=== PATIENT | female | born 1935 | race American Indian/Alaskan Native ===

== ENCOUNTER 2019-04-10 09:18 | Outpatient (CLI) | payer MEDICARE ==
--- NOTE | 2019-04-15 15:29 | PET Report ---
PET whole body initial INDICATION: Malignant neoplasm left lower limb. Tracer: F-18 FDG 12.5 mCi IV injection at 9:58 AM on 04/10/2019. TECHNIQUE: All CT scans at this location are performed using the following dose modulation technique: Automated exposure control. Following injection of the above tracer and appropriate delay, PET imaging was perf ormed from the skull base to the upper thighs. CT imaging was performed at the same time for the purp oses of anatomic localization. COMPARISON: None available. FINDINGS: Head/neck: Negative for abnormal uptake. CHEST: Negative for abnormal uptake. Abdomen/pelvis: Extensive adenopathy extends along the retroperitoneum throughout the abdomen and pel vis. A telephone services sales representative abdominal node located anterior to the aorta at the level of the kidneys measur es 2.1 cm in its greatest short axis diameter and has maximal SUV of 13.2 a telephone services sales representative pelvic nod es at the left common iliac chain measures 2.9 cm and has maximal SUV of 17. A large, partially calcified fibroid uterus demonstrates some internal activity likely representing d egeneration. Lower extremities: Large groin nodes are seen bilaterally. A telephone services sales representative node at the right groin m easures 3.9 cm and has maximal SUV of 17.[address] findings: Cirrhosis with portal hypertension including ascites, splenomegaly and varices. A combin ation of simple and complex renal lesions and a low-density splenic lesion measuring 1.9 cm are also present, but not metabolically active. A ventral hernia containing fat and fluid contains low-grade a ctivity which is favored to be physiologic IMPRESSION: 1. Extensive metastatic adenopathy versus lymphoma. 2. Incidental CT findings including cirrhosis with portal hypertension. Signer Name: Johnny Tai MD Signed: 04/15/2019 3:24 PM Workstation Name: [id number]
== END 2019-04-10 09:19 | disposition home or self-care (01) ==
LOC: PET 09:18
PROVIDERS: ATTEND Internal Medicine Hematology & Oncology
DX: K74.60 Unspecified cirrhosis of liver (principal); C76.52 Malignant neoplasm of left lower limb; R73.09 Other abnormal glucose; Z85.3 Personal history of malignant neoplasm of breast
CPT/HCPCS: 78816; 82962; A9552